=== PATIENT | female | born 1960 | race Caucasian/White ===

== ENCOUNTER 2023-09-12 09:08 | Day surgery (SDC) | payer BC ==
[~2023-09-12] VITALS: Ht 152.4 cm; Wt 82.5 kg
[2023-09-12] VITALS (20 sets, daily range): BP systolic 146–173; BP diastolic 48–78; PULSE 74–88; TEMP 97.8–98.3
[2023-09-12 09:53] LABS: HEMOGLOBIN 10.2 g/dl (12.5-16.0); MEAN CELL VOLUME 90 fl (80.0-100.0); MEAN CORPUSCULAR HEMOGLOBIN 30 pg (27-31); MEAN CORPUSCULAR HGB CONC 34 g/dl (33.0-37.0); MEAN PLATELET VOLUME 9.4 fl (7.4-10.4); PLATELET COUNT 228 K/mm3 (130-400); RED BLOOD COUNT 3.37 M/mm3 (4.10-5.30); REDCELL DISTRIBUTION WIDTH-CV 12.5 % (11.5-14.5)
[2023-09-12 09:56] LABS: HEMATOCRIT 30.3 % (37.0-47.0)
[2023-09-12 10:12] LABS: CALCIUM 9.7 mg/dL (8.4-10.2); CREATININE, serum 1.94 mg/dL (0.57-1.11); POTASSIUM 3.6 mmol/L (3.5-4.5)
[2023-09-12 10:19] LABS: INR 1.1 (0.8-3.0); PROTHROMBIN TIME 11.5 SECONDS (9.7-12.8)
[2023-09-12 10:22] LABS: PARTIAL THROMBOPLASTIN TIME 29.6 SECONDS (26.0-37.0)
--- NOTE | 2023-09-12 11:32 | NUR ---
SEE MERGE PAPERWORKK FOR PROCEDURE DOCUMENTATION
[2023-09-12] MEDS ORDERED: COZAAR 50MG50 MG/TAB PO (11:34)
[2023-09-12] MEDS ORDERED: NORVASC 10MG10 MG PO (11:34)
[2023-09-12] MEDS ORDERED: PEPCID 20MG TAB20 MG PO (11:34)
[2023-09-12] MEDS ORDERED: TYLENOL 500MG500 MG PO (11:35)
[2023-09-12] MEDS ORDERED: BUMEX2 MG PO (11:35)
[2023-09-12] MEDS ORDERED: PRAVACHOL80 MG PO (11:35)
[2023-09-12] MEDS ORDERED: BASAGLAR K100 UNIT/1 SQ (11:36)
[2023-09-12] MEDS ORDERED: OMEGA-3 1000 MG1 CAP PO (11:36)
--- NOTE | 2023-09-12 12:20 | NUR ---
pt brought to room from labor relations specialist. pt a&ox4. vss. radial compression band to right wrist, 13ml air in. med rec and assessment complete. assisted pt to bathroom, gait steady w walker. instructed pt to not use right arm w activity. pt denies needs at this time. call light in reach.
--- NOTE | 2023-09-12 15:15 | NUR ---
radial band air released, no bloody drainage. bandage applied.
--- NOTE | 2023-09-12 16:45 | NUR ---
per ss pt to receive 2 units of insulin. pt refusing all meds from the hospital due to not wanting to "increase her hospital bill". pt bp elevated, paged cardiology to update.
--- NOTE | 2023-09-12 23:48 | NUR ---
UPON SHIFT ASSESSMENT, ANDRZEJ, WAS UP IN BED WATCHING TV. SHE REFUSED ALL HOSPITAL ADMINISTERED MEDICATIONS AND ACCU-CHECKS THIS WAS AN UNECESSARY COST TO HER; SHE BROUGHT HOME MEDS AND HER OWN GLUCOMETER, BUT FORGOT HER INSULIN. CALL WAS PLACED TO [facility] [employer] [employer]EL[facility] CORINNE. TORB WAS TO ALLOW HER TO TAKE HOME MEDS USUALLY DUE AT THIS TIME. GRAYSON'S BG WAS 214, BUT SHE ALSO REFUSES HOSPITAL ADMINISTERED INSULIN. CORINNE STATED, "SHE SHOULD BE FINE UNTIL DISCHARGE IN THE MORNING." GRAYSON IS OTHERWISE PLEASANT, DENIES CHEST PAIN AND SOA. RT RADIAL CATH SITE HAS SCANT DRIED BLOOD UNDER BANDAID, DISTAL AND RADIAL PULSES ARE PALPABLE. VSS ARE WNL, CALL LIGHT WITHIN REACH.
[2023-09-13 01:00] VITALS: BP_SYST 164
[2023-09-13 03:14] VITALS: BP 163/73; PULSE 51; TEMP 97.9
[2023-09-13 05:00] VITALS: BP_SYST 163
[2023-09-13 05:57] LABS: BASO % 0.7 % (0.0-2.0); EOS # 0.2 K/mm3 (0.0-0.7); EOS % 3.1 % (0.0-4.0); GRAN # 3.6 K/mm3 (1.4-6.5); GRAN % 59.1 % (42.2-75.2); LYMPH # 1.6 K/mm3 (1.2-3.4); LYMPH % 27.1 % (20.0-51.0); MEAN CELL VOLUME 91 fl (80.0-100.0); MEAN CORPUSCULAR HGB CONC 32 g/dl (33.0-37.0); MEAN PLATELET VOLUME 9.5 fl (7.4-10.4); MONO # 0.6 K/mm3 (0.1-0.6); MONO % 9.7 % (1.7-9.3); PLATELET COUNT 205 K/mm3 (130-400); RED BLOOD COUNT 3.27 M/mm3 (4.10-5.30); REDCELL DISTRIBUTION WIDTH-CV 12.6 % (11.5-14.5)
[2023-09-13 05:59] LABS: HEMATOCRIT 29.7 % (37.0-47.0); HEMOGLOBIN 9.5 g/dl (12.5-16.0); MEAN CORPUSCULAR HEMOGLOBIN 29 pg (27-31)
[2023-09-13 06:15] LABS: CALCIUM 9.8 mg/dL (8.4-10.2); CREATININE, serum 1.98 mg/dL (0.57-1.11); POTASSIUM 3.9 mmol/L (3.5-4.5)
--- NOTE | 2023-09-13 06:31 | NUR ---
PATIENT CONTINUES TO ADVOCATE FOR LOW COST HEALTH CARE AND EDUCATION WAS PROVIDED ON DISCOUNTS OFFERED FOR NEW PRESCRIPTION-BRI[facility]. NO HOSPITAL MEDICATIONS WERE ADMINISTERED PER PATIENT REQUEST. VITAL SIGNS REMAIN STABLE AND TELE IS NS. SHE DENIES CHEST PAIN, SOA AND RADIAL CATH SITE PAIN. SHE EXHIBITS FRUSTRATION AND TIREDNESS AND ANXIOUSLY AWAITS DISCHARGE. CALL LIGHT WITHIN REACH.
--- NOTE | 2023-09-13 06:45 | NUR ---
PATIENT RESTING IN BED WITH ALL LIGHT OFF AND TV OFF WITH NO ACUTE DISTRESS NOTED. BEDSIDE SHIFT REPORT COMPLETED. PATIENT CONTINUES REFUSE HOSPITAL MEDICATIONS, BLOOD SUGAR CHECKS, AND ADVICATES FOR LOWER HEALTH CARE COSTS. BED IN LOW POSITION WITH WHEELS LOCKED WITH RAILS UP X2 AND CALL LIGHT WITHIN REACH.
--- NOTE | 2023-09-13 08:28 | NUR ---
PATIENT RESTING SITTING ON EDGE OF BED WITH TV ON WITH NO ACUTE DISTRESS NOTED AT THIS TIME. ASSESSMENT AND MEDICATION ADMINISTRATION COMPLETED. PATIENT TOLERATED WELL. PATIENT AGREED TO TAKE BIRLINTA. PATIENT STATED SHE TOOK HER HOME MEDICATIONS. PATIENT REQUESTED DIET SPRITE AND WAS GIVEN. PATIENT DENIES ANY OTHER NEEDS. BED IN LOW POSITION WITH WHEELS LOCKED WITH RAILS UP X2 AND CALL LIGHT WITHIN REACH.
[2023-09-13 09:00] VITALS: BP_SYST 163
--- NOTE | 2023-09-13 09:13 | NUR ---
Met with patient at bedside to discuss outpatient cardiac rehab program. Patient declines cardiac rehab at this time due to needing both knees replaced, unsure of copay-financial strain. Discussed cardiac rehab in the future if plan for knee replacement was scheduled. Discussed sending referral to [place] if she was interested in pursuing program in the future. Provided cardiac rehab phamplet and cardiac risk factors sheet.
--- NOTE | 2023-09-13 12:18 | NUR ---
SHEYLA NOTIFIED PRIMARY NURSE THAT PATIENT REFUSED BLOOD SUGAR.
--- NOTE | 2023-09-13 12:36 | NUR ---
PATIENT RESTING SITTING ON EDGE OF BED AT THIS TIME. PATIENT VERBALIZED UNDERSTANDING THAT [facility] RN CALLED ABOUT CARDIOLOGY ROUNDING DUE TO PATIENT WAITING TO BE DISCHARGED BECAUSE HER WAY HOME IS A FRIEND THAT SHE STATES "KEEPS TEXTING ME ASKING" AND "THEY TOOK OF WORK ALL DAY FOR ME." PATIENT REQUESTED DIET SPRITE AND WAS GIVEN. PATIENT REFUSED TO ORDER TRAY FROM DIETARY. PATIENT STATES "I JUST WANT TO GO HOME." PATIENT DENIES ANY OTHER NEEDS AT THIS TIME. BED IN LOW POSITION WITH WHEELS LOCKED WITH RAILS UP X2 AND CALL LIGHT WITHIN REACH.
[2023-09-13] MEDS ORDERED: BRILINTA90 MG PO (14:34)
[2023-09-13] MEDS ORDERED: ASPIRIN E.C. 8181 MG PO (14:37)
[2023-09-13] MEDS ORDERED: ATACAND 16M16 MG/TAB PO (14:39)
--- NOTE | 2023-09-13 15:30 | NUR ---
PATIENT RESTING SITTING ON EDGE OF BED WITH TV OFF AT THIS TIME. TELEMETRY REMOVED AND ICU CALLED. INTO TO LEFT FOREARM REMOVED WITH CATHETER INTACT AND DRESSING APPLIED. PATIENT TOLERATED WELL. DISCHARGE INSTRUCTION GIVEN. PATIENT VERBALIZED UNDERSTANDING. PATIENT DENIES ANY OTHER NEEDS AT THIS TIME. BED IN LOW POSITION WITH WHEELS LOCKED WITH RAILS UP X2 AND CALL LIGHT WITHIN REACH.
== END 2023-09-13 15:35 | disposition home or self-care (01) ==
LOC: COL.CAR 09:08 → MEDICAL 12:22 → COL.CAR 09-13 15:35
PROVIDERS: Internal Medicine Cardiovascular Disease
DX: I25.10 Atherosclerotic heart disease of native coronary artery without angina pectoris (principal); R94.39 Abnormal result of other cardiovascular function study; R06.02 Shortness of breath; R00.2 Palpitations; I45.10 Unspecified right bundle-branch block; K63.89 Other specified diseases of intestine; I49.3 Ventricular premature depolarization; I12.9 Hypertensive chronic kidney disease with stage 1 through stage 4 chronic kidney disease, or unspecified chronic kidney disease; N18.4 Chronic kidney disease, stage 4 (severe); R94.31 Abnormal electrocardiogram [ECG] [EKG]; E11.22 Type 2 diabetes mellitus with diabetic chronic kidney disease; Z95.5 Presence of coronary angioplasty implant and graft; Z87.891 Personal history of nicotine dependence; Z79.4 Long term (current) use of insulin; Z79.899 Other long term (current) drug therapy
CPT/HCPCS: OP; C1769; C1874; C1887; C9600; J0583; J1644; J2250; J3010